=== PATIENT | female | born 1975 | race American Indian/Alaskan Native ===

== ENCOUNTER 2016-05-16 14:14 | Emergency (ER) | payer MEDICAID, OTHER ==
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
--- NOTE | 2016-05-16 15:14 | CR ---
Clinical history: 40-year-old female "crush injury" right middle finger. Interpretation: Mild soft tissue swelling. No underlying fracture or dislocation middle finger.
[2016-05-16 16:07] VITALS: BP 134/89
== END 2016-05-16 15:27 | disposition home or self-care (01) ==
LOC: DL.ED 14:14
DX: S60.031A Contusion of right middle finger without damage to nail, initial encounter (principal); F17.200 Nicotine dependence, unspecified, uncomplicated; W20.8XXA Other cause of strike by thrown, projected or falling object, initial encounter
CPT/HCPCS: 73140-F7; 99282; 99283

== ENCOUNTER 2016-07-09 12:40 | Emergency (ER) | payer SELFPAY | END 2016-07-09 12:48 | disposition left against medical advice (07) | LOC: DL.ED 12:40 | DX: Z53.21 Procedure and treatment not carried out due to patient leaving prior to being seen by health care provider (principal) ==

== ENCOUNTER 2016-07-09 23:04 | Emergency (ER) | payer MEDICAID ==
[2016-07-09 23:34] VITALS: BP 109/79
--- NOTE | 2016-07-10 00:22 | EDM.PDOC ---
ED HPI GI/ABDOMINAL - General Chief Complaint: Abdominal Pain Stated Complaint: NOT FEELING WELL Time Seen by Provider: 07/10/16 00:19 Source of Information: Reports: Patient, Family History Limitations: Reports: No limitations - History of Present Illness INITIAL COMMENTS - FREE TEXT/NARRATIVE: states onset RLQ pain started last PM was at [facility] and eval' there with lab & CAT told not appy. gave Rx but not filled till arriving here and discovered no pharm open. now worried since pain not really going away and was told wbc 15, 000. - Related Data Allergies/ADRs: Allergies Allergy/AdvReac Type Severity Reaction Status Date / Time No Known Allergies Allergy Verified 07/09/16 23:27 Home Meds: Home Meds . [No Known Home Meds] 01/11/14 [History] Past Medical History - Past Health History Medical/Surgical History: Denies Medical/Surgical History Musculoskeletal History: Reports: Fracture - Infectious Disease History Infectious Disease History: Reports: None Social & Family History - Family History Family Medical History: Noncontributory - Tobacco Use Smoking Status *Q: Current Every Day Smoker Years of Tobacco use: 23 Packs/Tins Daily: 0.5 Used Tobacco, but Quit: No Month Tobacco Last Used: january Second Hand Smoke Exposure: Yes - Caffeine Use Caffeine Use: Reports: Coffee, Soda, Tea - Alcohol Use Days Per Week of Alcohol Use: 0 - Recreational Drug Use Recreational Drug Use: No - Living Situation & Occupation Living situation: Reports: with family ED ROS GENERAL - Review of Systems Review Of Systems: ROS reveals no pertinent complaints other than HPI. ED EXAM, GI/ABD - Physical Exam Exam: See Below Exam Limited By: No limitations General Appearance: alert, WD/WN, mild distress, other (upset crying) Ears: hearing grossly normal Throat/Mouth: Normal voice, No airway compromise Head: atraumatic Neck: non-tender, full range of motion Respiratory/Chest: no respiratory distress Cardiovascular: regular rate, rhythm GI/Abdominal: hyperactive bowel sounds, tenderness, other (RLQ region). No: distention, guarding, rebound, rigidity Neurological: alert, oriented, normal cognition, normal gait, no motor/sensory deficits Psychiatric: tearful Skin Exam: Warm, Dry Lymphatic: no adenopathy Course - Vital Signs Last Recorded V/S: Last Vital Signs Temp 37.7 C 07/09/16 23:30 Pulse 98 07/09/16 23:30 Resp 18 07/09/16 23:30 BP 109/79 07/09/16 23:30 Pulse Ox 98 07/09/16 23:30 - Orders/Labs/Meds Orders: Active Orders 24 hr Category Date Time Status Acetaminophen/HYDROcodone [[place] 325-10 MG] Med 07/10/16 01:15 Once 1 tab PO ONETIME ONE Labs: Laboratory Tests 07/10/16 07/10/16 Range/Units 00:26 00:26 WBC 16.9 H (5.0-10.0) 10^3/uL RBC 4.39 (4.2-5.4) 10^6/uL Hgb 12.6 (12.0-16.0) g/dL Hct 38.8 (37.0-47.0) % MCV 88.4 (80-100) fL MCH 28.7 (27.0-34.0) pg MCHC 32.5 L (33.0-35.0) g/dL Plt Count 363 (150-450) 10^3/uL Neut % (Auto) 75.7 H (42.2-75.2) % Lymph % (Auto) 17.7 L (20.5-50.1) % [place] % (Auto) 4.6 (2-8) % Eos % (Auto) 1.8 (1.0-3.0) % Baso % (Auto) 0.2 (0.0-1.0) % Sodium 137 (135-145) mmol/L Potassium 3.9 (3.6-5.0) mmol/L Chloride 103 (101-111) mmol/L Carbon Dioxide 26.0 (21.0-31.0) mmol/L Anion Gap 11.9 BUN 13 (7-18) mg/dL Creatinine 0.7 (0.6-1.3) mg/dL Est Cr Clr Drug Dosing 85.83 mL/min Estimated GFR (MDRD) > 60 BUN/Creatinine Ratio 18.57 Glucose 97 (74-105) mg/dL Calcium 8.6 (8.4-10.2) mg/dl Total Bilirubin 1.2 H (0.2-1.0) mg/dL AST 18 (10-42) IU/L ALT 13 (10-60) IU/L Alkaline Phosphatase 89 (42-121) IU/L Total Protein 6.6 L (6.7-8.2) g/dl Albumin 3.6 (3.2-5.5) g/dl Globulin 3.0 Albumin/Globulin Ratio 1.20 - Re-Assessments/Exams Free Text/Narrative Re-Assessment/Exam: 07/10/16 01:15 results discussed with pt and [facility] results reveal U.S showing likely bowel related problem then f/u CAT reveal no appy. Departure - Departure Time of Disposition: 01:16 Disposition: Home, Self-Care 01 Condition: good Clinical Impression: Abdominal pain Qualifiers: Abdominal location: right lower quadrant Qualified Code(s): R10.31 - Right lower quadrant pain Instructions: Abdominal Pain, Adult, [id number] Forms: ED Department Discharge Additional Instructions: 1) rest and avoid bending lifting straining 2) avoid solid foods next 48 hours 3) liquid diet 4) follow up at clinic or recheck as needed - My Orders Last 24 Hours: My Active Orders 07/10/16 01:15 Acetaminophen/HYDROcodone [[place] 325-10 MG] 1 tab PO ONETIME ONE - Assessment/Plan Last 24 Hours: My Active Orders 07/10/16 01:15 Acetaminophen/HYDROcodone [[place] 325-10 MG] 1 tab PO ONETIME ONE
[2016-07-10 00:54] LABS: CHLORIDE,CL 103 mmol/L (101-111); SODIUM,NA 137 mmol/L (135-145)
[2016-07-10] MEDS ORDERED: Acetaminophen/HYDROcodone 325-10 MG Tab PO ONE (01:15)
== END 2016-07-10 01:21 | disposition home or self-care (01) ==
LOC: DL.ED 23:04
DX: R10.31 Right lower quadrant pain (principal); F17.210 Nicotine dependence, cigarettes, uncomplicated
CPT/HCPCS: 36415; 80053; 85025; 99284; A9270; 99283

== ENCOUNTER 2017-02-28 02:27 | Emergency (ER) | payer MEDICAID ==
[2017-02-28 02:34] VITALS: BP 155/98
[2017-02-28 03:11] LABS: CHLORIDE,CL 105 mmol/L (101-111); SODIUM,NA 142 mmol/L (135-145)
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
== END 2017-02-28 03:35 ==
LOC: DL.ED 02:27
DX: F32.9 Major depressive disorder, single episode, unspecified (principal); F68.8 Other specified disorders of adult personality and behavior; F19.10 Other psychoactive substance abuse, uncomplicated; F17.210 Nicotine dependence, cigarettes, uncomplicated; E03.9 Hypothyroidism, unspecified
CPT/HCPCS: 36415; 80053; 80305; 81001; 81025; 84443; 85025; 99284; G0480